=== PATIENT | female | born 1960 | race Caucasian/White ===

== ENCOUNTER → 2020-07-13 | Day surgery (SDC) | payer MEDICARE, MEDICAID ==
[2020-07-08 14:04] LABS: BASOPHILS # (AUTO) 0.1 X10'3 (0-0.2); BASOPHILS % (AUTO) 0.6 % (0-1); EOSINOPHILS # (AUTO) 0.1 X10'3 (0-0.9); EOSINOPHILS % (AUTO) 1.2 % (0-6); LYMPHOCYTES # (AUTO) 2.7 X10'3 (1.1-4.8); LYMPHOCYTES % (AUTO) 30.9 % (21-51); MEAN CORPUSCULAR HGB CONC 33.1 g/dL (33.0-36.5); MEAN CORPUSCULAR VOLUME 96.6 FL (78-98); MEAN PLATELET VOLUME 8.7 FL (7.4-10.4); MONOCYTES # (AUTO) 0.8 X10'3 (0-0.9); MONOCYTES % (AUTO) 9.2 % (2-12); NEUTROPHILS # (AUTO) 5.1 X10'3 (1.8-7.7); NEUTROPHILS % (AUTO) 58.1 % (42-75); PRE OP HEMATOCRIT 40.6 % (35.0-45.0); PRE OP HEMOGLOBIN 13.4 g/dL (12.0-16.0); PRE OP PLATELET COUNT 258 X10'3 (140-440); RED CELL DISTRIBUTION WIDTH 13.4 % (11.5-14.5)
[2020-07-08 14:22] LABS: PRE OP INR < 0.9 INR; PRE OP PARTIAL THROMB. TIME 26 SECONDS (22-32); PRE OP PROTIME 9.6 SECONDS (9.0-12.0)
[2020-07-08 14:24] LABS: ALBUMIN 3.6 G/DL (3.4-5.0); ALBUMIN/GLOBULIN RATIO 0.9 (1.1-1.5); ALKALINE PHOSPHATASE 110 IU/L (46-116); BLOOD UREA NITROGEN 13 MG/DL (7-18); BUN/CREATININE RATIO 11.1 (6.6-38.0); CHLORIDE 109 MMOL/L (99-107); CREATININE 1.17 MG/DL (0.40-0.90); PRE OP ALT 24 U/L (30-65); PRE OP ANION GAP 6 (8-16); PRE OP AST 19 U/L (10-37); PRE OP BILIRUB, TOTAL 0.1 MG/DL (0.0-1.0); PRE OP GLUCOSE 103 MG/DL (70-104); PRE OP POTASSIUM 3.7 MMOL/L (3.4-5.1); PRE OP SODIUM 141 MMOL/L (135-145); TOTAL CARBON DIOXIDE 26.4 MMOL/L (24-32); TOTAL PROTEIN 7.4 G/DL (6.4-8.2); eGFR 48 ML/MIN
[~2020-07-13] VITALS: Ht 153.7 cm; Wt 63.5 kg
[2020-07-13] VITALS (8 sets, daily range): BP systolic 146–168; BP diastolic 83–101
[~2020-07-13] MED LIST: BIOT1CAP3 PO; BUPIVAcaine 0.5% W/EPI /PF 30ml vial IJ ONE; CYAN500T46 PO; FLUV25TA3 PO; LIDOcaine 1% W/epiNEPHrine 1:100,000 20ml vial ONE; LIDOcaine 2% (20mg/ml) 5ml vial ONE; LORA2TAB96 PO; MIDAZolam 1mg/ml 10ml vial IV PRN; MIDAZolam 5mg/ml 2ml vial IV PRN; MIRT15TA PO; PALI1.5T PO; TRAZ-251 PO; VALA500T PO; cefTAZidime 1gm inj ONE; cocaine 4% topical solution 4ml bottle ONE; dexamethasone sod phosphate 4mg/ml inj. ONE; ePHEDrine 50MG/ML INJ. ONE; famotidine 20mg tablet PO ONE; fentaNYL/PF 50MCG/1 ML 2ML syringe IV PRN; fentaNYL/PF 50MCG/1 ML 2ML syringe ONE; hydrALAZINE 20mg/ml inj. IV PRN; labetalol 20mg/4ml (5mg/ml) syringe IV PRN; methylPREDNISolone acetate 80mg/ml inj**IM only ONE; morphine 2 MG/ML inj. syringe IV PRN; morphine 4 MG/ML inj SYRINge IV PRN; mupirocin 2% ointment 22GM ONE; ondansetron/PF 4mg/2ml inj IV PRN; ondansetron/PF 4mg/2ml inj ONE; oxymetazoline 15 ML nasal spray NS ONE; oxymetazoline 15 ML nasal spray NS PRN; propofol inj 20 ML IV ONE; ringers solution, lacted 1,000 ML IV SCH; salt irrigation nasal spray 45 ML SPRAY NS PRN; sevoflurane 250ml liquid IH ONE
--- NOTE | 2020-07-13 14:38 | NUR ---
Received from OR via [facility] , accompanied by Anesthesiologist DR APPIAH and report given by Anesthesiolgist. PT AROUSABLE. COTTONOIDS TO BILAT NARES AT THIS TIME.
--- NOTE | 2020-07-13 15:07 | NUR ---
LABETOLOL 5MG ADMIN ORDERED FOR BP, MEDICATION WOULD NOT SCAN. [employer] SAYS UNKNOWN WHEN I SCANNED MEDICATION.
--- NOTE | 2020-07-13 15:08 | NUR ---
SURJIT DC'D PER MD ORDERS. ANNY NASAL GTT DRSG IN PLACE.
--- NOTE | 2020-07-13 15:58 | NUR ---
PT WAS DISCHARGED TO HOME PER MD ORDERS. PT BP REMAINED A LITTLE ELEVATED AFTER LABETOLOL, BUT PT NOT BLEEDING, DR GÓMEZ AWARE AND OK TO DC TO HOME. PT AND SPOUSE BOTH INSTRUCTED ON ALL POST OP INSTRUCTIONS AND BOTH STATE UNDERSTANDING. AFIRIN AND OINTMENT TO BILAT NARES PER MD ORDERS. PT WAS DC'D SAFELY VIA W/C WITH ALL BELONGINGS.
== END | disposition home or self-care (01) ==
LOC: PAS 09:03
PROVIDERS: ATTEND Otolaryngology
DX: J34.2 Deviated nasal septum (principal); J34.3 Hypertrophy of nasal turbinates; J32.8 Other chronic sinusitis; J34.89 Other specified disorders of nose and nasal sinuses; F41.9 Anxiety disorder, unspecified; F32.9 Major depressive disorder, single episode, unspecified; F20.9 Schizophrenia, unspecified; F43.10 Post-traumatic stress disorder, unspecified; Z90.710 Acquired absence of both cervix and uterus; Z98.890 Other specified postprocedural states; Z88.2 Allergy status to sulfonamides; Z88.1 Allergy status to other antibiotic agents; Z91.09 Other allergy status, other than to drugs and biological substances; Z79.899 Other long term (current) drug therapy; Z79.01 Long term (current) use of anticoagulants; Z20.828 Contact with and (suspected) exposure to other viral communicable diseases
CPT/HCPCS: 30140; 30520; 31254; 31267; 36415; 61782; 70486; 80053; 82948; 85025; 85576; 85610; 85730; 87635; 93005; A6402; C9250; C9803; J0713; J1040; J1100; J2001; J2250; J2405; J2704; J3010; J7040; J7120; A4618; A7000; J3490

== ENCOUNTER 2020-07-21 13:58 | Outpatient (CLI) | payer MEDICARE, MEDICAID ==
[~2020-07-21 13:58] MED LIST changes: -BUPIVAcaine 0.5% W/EPI /PF 30ml vial IJ ONE; -LIDOcaine 1% W/epiNEPHrine 1:100,000 20ml vial ONE; -LIDOcaine 2% (20mg/ml) 5ml vial ONE; -MIDAZolam 1mg/ml 10ml vial IV PRN; -MIDAZolam 5mg/ml 2ml vial IV PRN; -cefTAZidime 1gm inj ONE; -cocaine 4% topical solution 4ml bottle ONE; -dexamethasone sod phosphate 4mg/ml inj. ONE; -ePHEDrine 50MG/ML INJ. ONE; -famotidine 20mg tablet PO ONE; -fentaNYL/PF 50MCG/1 ML 2ML syringe IV PRN; -fentaNYL/PF 50MCG/1 ML 2ML syringe ONE; -hydrALAZINE 20mg/ml inj. IV PRN; -labetalol 20mg/4ml (5mg/ml) syringe IV PRN; -methylPREDNISolone acetate 80mg/ml inj**IM only ONE; -morphine 2 MG/ML inj. syringe IV PRN; -morphine 4 MG/ML inj SYRINge IV PRN; -mupirocin 2% ointment 22GM ONE; -ondansetron/PF 4mg/2ml inj IV PRN; -ondansetron/PF 4mg/2ml inj ONE; -oxymetazoline 15 ML nasal spray NS ONE; -oxymetazoline 15 ML nasal spray NS PRN; -propofol inj 20 ML IV ONE; -ringers solution, lacted 1,000 ML IV SCH; -salt irrigation nasal spray 45 ML SPRAY NS PRN; -sevoflurane 250ml liquid IH ONE
== END 2020-07-21 23:59 | disposition home or self-care (01) ==
LOC: RT 13:58
PROVIDERS: ATTEND Nurse Practitioner
DX: J45.909 Unspecified asthma, uncomplicated (principal); R94.2 Abnormal results of pulmonary function studies
CPT/HCPCS: 94010

== ENCOUNTER 2020-08-04 15:33 | Emergency (ER) | payer MEDICARE, MEDICAID ==
[~2020-08-04] VITALS: Ht 154.9 cm; Wt 60.9 kg
[2020-08-04 16:33] LABS: HEMATOCRIT 37.8 % (35.0-45.0); MEAN CORPUSCULAR HEMOGLOBIN 32.8 PG (27.0-31.0)
[2020-08-04 16:35] LABS: BASOPHILS # (AUTO) 0.1 X10'3 (0-0.2); BASOPHILS % (AUTO) 1.4 % (0-1); EOSINOPHILS # (AUTO) 0.1 X10'3 (0-0.9); EOSINOPHILS % (AUTO) 1.4 % (0-6); HEMOGLOBIN 12.8 g/dl (12.0-16.0); LYMPHOCYTES # (AUTO) 2.8 X10'3 (1.1-4.8); LYMPHOCYTES % (AUTO) 30.6 % (21-51); MEAN CORPUSCULAR HGB CONC 33.9 g/dL (33.0-36.5); MEAN CORPUSCULAR VOLUME 96.6 FL (78-98); MEAN PLATELET VOLUME 8.9 FL (7.4-10.4); MONOCYTES # (AUTO) 0.8 X10'3 (0-0.9); MONOCYTES % (AUTO) 9.1 % (2-12); NEUTROPHILS # (AUTO) 5.3 X10'3 (1.8-7.7); NEUTROPHILS % (AUTO) 57.5 % (42-75); PLATELET COUNT 314 X10'3 (140-440); RED BLOOD COUNT 3.91 X10'6 (4.20-5.60); RED CELL DISTRIBUTION WIDTH 13.5 % (11.5-14.5); WHITE BLOOD COUNT 9.3 X10'3 (4.5-11.0)
[2020-08-04 16:47] LABS: ALANINE AMINOTRANSFERASE 22 U/L (12-78); ALBUMIN 3.5 G/DL (3.4-5.0); ALBUMIN/GLOBULIN RATIO 0.9 (1.1-1.5); ALKALINE PHOSPHATASE 134 IU/L (46-116); ANION GAP 4 (8-16); ASPARTATE AMINO TRANSFERASE 16 U/L (10-37); BILIRUBIN,TOTAL 0.1 MG/DL (0.1-1.0); BLOOD UREA NITROGEN 17 MG/DL (7-18); BUN/CREATININE RATIO 16.7 (6.6-38.0); CALCIUM 9.7 MG/DL (8.5-10.1); CHLORIDE 106 MMOL/L (99-107); CREATININE 1.02 MG/DL (0.40-0.90); GLUCOSE 97 MG/DL (70-104); POTASSIUM 3.9 MMOL/L (3.5-5.1); SODIUM 139 MMOL/L (135-145); TOTAL PROTEIN 7.3 G/DL (6.4-8.2); eGFR 56 ML/MIN
[2020-08-04 17:15] LABS: ETHANOL < 0.010 GM/DL (0.0-0.010)
--- NOTE | 2020-08-04 18:19 | NUR ---
PT HAS GIVEN PERMISSION FOR STAFF TO GIVE STATUS UPDATES TO HER PITA BYRD WHEN HE CALLS. CONTACT INFO: ROCHELLE MCKINLEY; H) [phone] C) [phone]
[2020-08-04] MEDS: fluvoxamine 25 MG tablet PO SCH (20:48)
[2020-08-04] MEDS ORDERED: LORazepam 1 MG tablet PO SCH (21:00)
[2020-08-04] MEDS ORDERED: traZODone 50mg tablet PO SCH (21:00)
[2020-08-04] MEDS ORDERED: mirtazapine 15mg tablet PO SCH (21:00)
[2020-08-04] MEDS ORDERED: paliperidone 1.5mg ER tablet PO SCH (21:00)
[2020-08-04] MEDS ORDERED: valacyclovir 500mg tablet PO SCH (21:00)
--- NOTE | 2020-08-04 21:27 | NUR ---
PT RESTING IN BED. NO S/S OF DISTRESS OR PAIN. WILL CONTINUE TO MONITOR.
[2020-08-05 01:17] LABS: URINE HCG NEGATIVE (NEG)
[2020-08-05 01:23] LABS: URINE AMPHETAMINE SCREEN NEGATIVE (Neg); URINE BARBITUATE SCREEN NEGATIVE (Neg); URINE BENZODIAZEPINES SCREEN NEGATIVE (Neg); URINE CANNABINOID SCREEN POSITIVE (Neg); URINE COCAINE SCREEN NEGATIVE (Neg); URINE METHADONE SCREEN NEGATIVE (Neg); URINE OPIATE SCREEN NEGATIVE (Neg); URINE PHENCYCLIDINE SCREEN NEGATIVE (Neg)
[2020-08-05 01:30] LABS: CLARITY,URINE CLEAR (Clear); COLOR,URINE YELLOW (Yellow); GLUCOSE, URINE NEGATIVE (Neg); KETONES,URINE NEGATIVE (Neg); LEUKOCYTE ESTERASE ,URINE NEGATIVE (Neg); NITRITES, URINE NEGATIVE (Neg); OCCULT BLOOD,URINE NEGATIVE (Neg); PROTEIN,URINE NEGATIVE (Neg); UROBILINOGEN,URINE 0.2 E.U/dL (0.2-1.0)
[2020-08-05 01:31] LABS: UA COLLECTION TYPE CLN CATCH MIDSTREAM
[2020-08-05] MEDS ORDERED: cyanocobalamin 500mcg tablet PO SCH (08:00)
[2020-08-05] MEDS ORDERED: non-formulary drug (Biotin 1 CAP) PO SCH (08:00)
[2020-08-05] MEDS: fluvoxamine 25 MG tablet PO SCH (08:39)
--- NOTE | 2020-08-05 12:42 | NUR ---
LUNCH RELIEF FOR PRIMARY RN: PT RESTING WITH EYES CLOSED RR EQUAL AND UNLABORED
--- NOTE | 2020-08-05 15:54 | NUR ---
sitting up in bed resting
--- NOTE | 2020-08-05 16:41 | NUR ---
resting in bed
--- NOTE | 2020-08-05 17:26 | NUR ---
hook up driver time for Rob Murray at 1815.
--- NOTE | 2020-08-05 17:26 | NUR ---
resting in bed
--- NOTE | 2020-08-05 18:00 | NUR ---
resting in bed
[2020-08-05 18:09] VITALS: BP 108/81
--- NOTE | 2020-08-05 18:56 | NUR ---
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 PT'S BELONGINGS AND MEDS ARE WITH FACILITY REP. PT LEAVING IN STABLE CONDITION.
== END 2020-08-05 18:59 ==
LOC: ER 15:33
DX: R45.851 Suicidal ideations (principal); F32.9 Major depressive disorder, single episode, unspecified; F25.9 Schizoaffective disorder, unspecified; Z88.2 Allergy status to sulfonamides; Z79.2 Long term (current) use of antibiotics; Z88.8 Allergy status to other drugs, medicaments and biological substances; Z79.899 Other long term (current) drug therapy
CPT/HCPCS: 36415; 80053; 80305; 80320; 81003; 81025; 84443; 85025; 99285

== ENCOUNTER 2022-02-12 10:52 | Emergency (ER) | payer MEDICARE, MEDICAID ==
[~2022-02-12] VITALS: Ht 157.5 cm; Wt 84.0 kg
[~2022-02-12 10:52] MED LIST changes: +FLUV25TA14 PO; -FLUV25TA3 PO; +MIRT-116 PO; -MIRT15TA PO
[2022-02-12] MEDS ORDERED: normal saline 1000ml 1,000 ML IV ONE (11:35)
[2022-02-12] MEDS ORDERED: ondansetron/PF 4mg/2ml inj IV ONE (11:35)
[2022-02-12 12:22] LABS: BASOPHILS % (AUTO) 0.3 % (0-1); EOSINOPHILS % (AUTO) 0.1 % (0-6); HEMOGLOBIN 12.5 g/dl (12.0-16.0); LYMPHOCYTES # (AUTO) 0.9 X10'3 (1.1-4.8); LYMPHOCYTES % (AUTO) 11.4 % (21-51); MEAN CORPUSCULAR HEMOGLOBIN 31.9 PG (27.0-31.0); MEAN CORPUSCULAR HGB CONC 33.8 g/dL (33.0-36.5); MEAN CORPUSCULAR VOLUME 94.5 FL (78-98); MEAN PLATELET VOLUME 8.7 FL (7.4-10.4); MONOCYTES # (AUTO) 0.6 X10'3 (0-0.9); MONOCYTES % (AUTO) 7.6 % (2-12); NEUTROPHILS # (AUTO) 6.1 X10'3 (1.8-7.7); NEUTROPHILS % (AUTO) 80.6 % (42-75); PLATELET COUNT 272 X10'3 (140-440); RED BLOOD COUNT 3.91 X10'6 (4.20-5.60); RED CELL DISTRIBUTION WIDTH 15.1 % (11.5-14.5); WHITE BLOOD COUNT 7.6 X10'3 (4.5-11.0)
[2022-02-12 12:37] LABS: ALANINE AMINOTRANSFERASE 94 U/L (12-78); ALBUMIN 3.4 G/DL (3.4-5.0); ALBUMIN/GLOBULIN RATIO 0.8 (1.1-1.5); ALKALINE PHOSPHATASE 150 IU/L (46-116); ANION GAP 10 (8-16); ASPARTATE AMINO TRANSFERASE 125 U/L (10-37); BILIRUBIN,TOTAL 0.3 MG/DL (0.1-1.0); BLOOD UREA NITROGEN 7 MG/DL (7-18); BUN/CREATININE RATIO 7.3 (6.6-38.0); CALCIUM 9.3 MG/DL (8.5-10.1); CHLORIDE 104 MMOL/L (99-107); CREATININE 0.96 MG/DL (0.40-0.90); GLUCOSE 140 MG/DL (70-104); LIPASE 62 U/L (73-393); POTASSIUM 3.4 MMOL/L (3.5-5.1); SODIUM 138 MMOL/L (135-145); TOTAL CARBON DIOXIDE 24.1 MMOL/L (24-32); TOTAL PROTEIN 7.7 G/DL (6.4-8.2); eGFR 59 ML/MIN
[2022-02-12] MEDS ORDERED: normal saline 1000ML IV soln IV ONE (12:40)
[2022-02-12] MEDS ORDERED: morphine 2 MG/ML inj. syringe IV ONE (13:20)
[2022-02-12 13:38] LABS: CLARITY,URINE SLIGHTLY CLOUDY (Clear); COLOR,URINE YELLOW (Yellow); GLUCOSE, URINE NEGATIVE (Neg); KETONES,URINE NEGATIVE (Neg); LEUKOCYTE ESTERASE ,URINE NEGATIVE (Neg); NITRITES, URINE NEGATIVE (Neg); OCCULT BLOOD,URINE SMALL (Neg); PROTEIN,URINE NEGATIVE (Neg); UROBILINOGEN,URINE 0.2 E.U/dL (0.2-1.0)
[2022-02-12 13:39] LABS: UA COLLECTION TYPE CLN CATCH MIDSTREAM
[2022-02-12 13:46] LABS: MUCUS STRANDS FEW /LPF (Neg); SQUAMOUS EPITHELIAL CELL,UR MODERATE /LPF (FEW)
[2022-02-12 13:47] LABS: BACTERIA,URINE FEW /HPF (Neg)
[2022-02-12 13:48] LABS: WBC,URINE 0-4 /HPF (0-4)
[2022-02-12] MEDS ORDERED: ondansetron 4mg rapidly disintigrating tab PO ONE (14:45)
[2022-02-12] MEDS ORDERED: ONDA4TAB12 PO (14:48)
[2022-02-12] MEDS ORDERED: potassium chloride 10mEq ER tablet PO SCH (14:50)
[2022-02-12] MEDS ORDERED: diphenhydrAMINE 50 mg/ml inj IV ONE (15:20)
[2022-02-12] MEDS ORDERED: proCHLORperazine 10 MG/2 ml inj IV ONE (15:20)
--- NOTE | 2022-02-12 15:30 | NUR ---
Attempted to discharge pt, gave potassium per order. Pt began vomiting with a sip of 7 Up. Provider notified.
--- NOTE | 2022-02-12 15:48 | NUR ---
Pt taking sips of water with no nausea or vomiting.
[2022-02-12 15:57] VITALS: BP 148/103
== END 2022-02-12 16:00 | disposition home or self-care (01) ==
LOC: ER 10:52
DX: K52.9 Noninfective gastroenteritis and colitis, unspecified (principal); Z20.822 Contact with and (suspected) exposure to COVID-19; Z88.2 Allergy status to sulfonamides; Z88.1 Allergy status to other antibiotic agents; Z91.048 Other nonmedicinal substance allergy status; Z79.899 Other long term (current) drug therapy; Z79.2 Long term (current) use of antibiotics
CPT/HCPCS: 36415; 76700; 80053; 81001; 83605; 83690; 84145; 85025; 87040; 87635; 96361; 96374; 96375; 99285; C9803; J0780; J1200; J2270; J2405; J7030

== ENCOUNTER → 2022-06-07 | Emergency (ER) | payer MEDICARE, MEDICAID ==
[~2022-06-07] VITALS: Ht 157.5 cm; Wt 75.0 kg
[~2022-06-07] MED LIST changes: +GABA300C PO; +ONDA4TAB12 PO
[2022-06-07 10:13] VITALS: BP 142/109
== END | disposition home or self-care (01) ==
LOC: ER 09:51
DX: G62.9 Polyneuropathy, unspecified (principal); F31.9 Bipolar disorder, unspecified; F20.9 Schizophrenia, unspecified; Z88.2 Allergy status to sulfonamides; Z79.899 Other long term (current) drug therapy; Z79.2 Long term (current) use of antibiotics
CPT/HCPCS: 99283

== ENCOUNTER 2023-05-18 16:04 | Emergency (ER) | payer MEDICARE, MEDICAID ==
[~2023-05-18] VITALS: Ht 157.5 cm; Wt 60.0 kg
[~2023-05-18 16:04] MED LIST changes: +ATOR10TA70 PO; -BIOT1CAP3 PO; -CYAN500T46 PO; +ESCI-8 PO; -FLUV25TA14 PO; -GABA300C PO; +LURA80TA2 PO; -MIRT-116 PO; +OMEP40CA21 PO; -ONDA4TAB12 PO; -PALI1.5T PO
[2023-05-18 16:08] VITALS: BP 147/87
[2023-05-18] MEDS ORDERED: TRIA15CR61 TP (17:25)
== END 2023-05-18 17:47 | disposition home or self-care (01) ==
LOC: ER 16:04
DX: L23.7 Allergic contact dermatitis due to plants, except food (principal); F31.9 Bipolar disorder, unspecified; F20.9 Schizophrenia, unspecified; Z88.2 Allergy status to sulfonamides; Z79.899 Other long term (current) drug therapy; Z88.1 Allergy status to other antibiotic agents; Z79.1 Long term (current) use of non-steroidal anti-inflammatories (NSAID); Z79.2 Long term (current) use of antibiotics
CPT/HCPCS: 99283

== ENCOUNTER 2025-01-11 11:45 | Emergency (ER) | payer MEDICARE, MEDICAID ==
[~2025-01-11] VITALS: Ht 157.5 cm; Wt 67.8 kg
[2025-01-11 12:00] VITALS: BP 155/82; PULSE 76; RESP 16; TEMP 96.4; O2SAT 97
== END 2025-01-11 14:30 | disposition left against medical advice (07) ==
LOC: ER 11:45
DX: S05.31XA Ocular laceration without prolapse or loss of intraocular tissue, right eye, initial encounter (principal); X58.XXXA Exposure to other specified factors, initial encounter; Y93.89 Activity, other specified; Y92.89 Other specified places as the place of occurrence of the external cause; Y99.8 Other external cause status; Z53.21 Procedure and treatment not carried out due to patient leaving prior to being seen by health care provider
CPT/HCPCS: 70450; 72125

== ENCOUNTER 2025-01-11 17:27 | Emergency (ER) | payer MEDICARE, MEDICAID ==
[~2025-01-11] VITALS: Ht 157.5 cm; Wt 61.9 kg
[2025-01-11 17:30] VITALS: BP 153/97; PULSE 76; RESP 15; O2SAT 96
== END 2025-01-11 19:26 | disposition left against medical advice (07) ==
LOC: ER 17:28
DX: S05.31XA Ocular laceration without prolapse or loss of intraocular tissue, right eye, initial encounter (principal); Z88.2 Allergy status to sulfonamides; W19.XXXA Unspecified fall, initial encounter; Y93.89 Activity, other specified; Y92.89 Other specified places as the place of occurrence of the external cause; Y99.8 Other external cause status; Z53.21 Procedure and treatment not carried out due to patient leaving prior to being seen by health care provider

== ENCOUNTER 2025-08-25 14:43 | Emergency (ER) | payer MEDICARE, MEDICAID ==
[~2025-08-25] VITALS: Ht 157.5 cm; Wt 70.8 kg
--- NOTE | 2025-08-25 17:05 | Physician Documentation ---
History of Present Illness ~ Chief Complaint: Cold, cough & congestion Stated Complaint: FLU SYMPTOMS Time Seen by MD: 17:56 Primary Medical Doctor: Vikki Mead HPI Patient is seen today with complaints of cough cold congestion and fever and c hills that started couple of days ago. Patient does admit to sick contacts and patient is afraid she might have COVID-19. She denies any prior testing for COVID recently. She denies any chest pain or shortness of breath aside from cough. Endorses diarrhea for which she is taking immodium with good affect but having nausea as well. with similar symptoms Medication Reconciliation Allergies: Coded Allergies: Sulfa (Sulfonamide Antibiotics) (Unverified Allergy, Unknown, 08/25/25) adhesive tape (Unverified Allergy, Unknown, 08/25/25) erythromycin base (Unverified Allergy, Unknown, 08/25/25) Scheduled Atorvastatin Calcium (Atorvastatin Calcium), 1 TAB PO DAILY, (Reported) Escitalopram Oxalate (Escitalopram Oxalate), 2 TAB PO QAM, (Reported) Lorazepam (Ativan), 1 TAB PO HS, (Reported) Lurasidone HCl (Latuda), 1 TAB PO HS, (Reported) Omeprazole (Prilosec), 1 CAP PO DAILY, (Reported) Ondansetron 8mg ODT (Ondansetron Odt), 1 TAB PO Q6H Valacyclovir Hcl (Valtrex), 1 TAB PO HS, (Reported) Scheduled PRN Trazodone HCl (Trazodone HCl), 2 TAB PO HS PRN for sleep, (Reported) Past Medical History Past Medical History: Anxiety, Bipolar, Depression, Schizophrenia Past Surgical History: noncontributory Alcohol Use: None Drug Use: none Lives In: Home Review of Systems ROS All review of systems negative except as per HPI Constitutional: Denies: chills, fever, weakness Eyes: Denies: pain, blurred vision ENT: Denies: ear pain, nose pain, throat pain, mouth pain Respiratory: Denies: cough, shortness of breath Cardiovascular: Denies: chest pain, palpitations Gastrointestinal: Denies: abdominal pain, nausea, vomiting Genitourinary: Denies: burning, dysuria Female Genitalia: Denies: vaginal discharge, pelvic pain Neurological: Denies: headache, dizziness Musculoskeletal: Denies: pain, swelling Integumentary: Denies: rash, lesions Allergic/Immunologic: Denies: hives, itching Hematologic/Lymphatic: Denies: no symptoms reported Psychiatric: Denies: depression, anxiety Physical Exam Vital Signs: Temperature: 97.6, Source: Temporal, Heart Rate: 102, Respiratory Rate: 20, BP: 172/109, Pulse Oximetry: 98, Weight: 70.800 Oxygen Flow Rate: 0 Physical Exam General: Patient is awake, alert, oriented x4 in no acute distress Head: Normocephalic and atraumatic. Eyes: Conjunctival normal. EOMI. PERRL. ENT: Mucous membranes moist. Neck: Supple, trachea is midline. Chest: Clear to auscultation bilaterally without rales, rhonchi, or wheezes. There is no accessory muscle use or retractions. Cardiac: RRR without murmurs, gallops, or rubs. Abd: Soft, nondistended, nontender, with normoactive bowel sounds. No guarding, rebound, or rigidity. Progress Results/Orders Results/Orders Completed Orders - ONESIMO GRAVES MD Ondansetron Disint. Tablet (Zofran Odt T (08/25/25 18:20) Medications Received in ER Medications (Trade) Dose Ordered Sig/Constantino Route PRN Reason Start Time Stop Time Status Last Admin Dose Admin (Zofran ODT tablet) 8 mg ONCE ONCE PO 08/25/25 18:20 08/25/25 18:21 DC 08/25/25 19:00 8 MG Vital Signs 08/25/25 08/25/25 08/25/25 08/25/25 14:50 17:34 17:35 19:02 Temp 97.6 97.6 97.6 Pulse 102 92 89 Resp 20 18 20 18 B/P (MAP) 172/109 136/93 (107) 136/99 Pulse Ox 98 98 99 O2 Flow Rate 0 0 Laboratory Tests Test 08/25/25 17:30 Influenza Type A Antigen Negative Influenza Type B Antigen Negative SARS-CoV-2 Antigen (Rapid) Negative Medical Decision Making Additional information obtaine: other Findings Patient presents to the emergency room with a constellation of symptoms that has per HPI. Differentials include but are not limited to dehydration, electrolyte disturbances, sepsis therefore emergent labs ordered which were reassuring. Given patient's variety of symptoms I suspect viral etiology. Symptomatic treatment only. I do not feel she requires a chest x-ray given reassuring physical exam and stable vitals. I do not feel any CT is necessary. Differential Dx:Considerations: Include: Allergic rhinitis, Influenza, Otitis media, Peritonsillar abscess, Pharyngitis-Diphtheria, Pharyngitis-Streptoccal, Pharyngitis-Viral, Pneumonia, Pnuemonitis, Sinusitis, URI, Other Departure Disposition: HOME / SELF CARE / HOMELESS Impression: Primary Impression: Gastroenteritis Condition: Stable Discharge Instructions: Viral Gastroenteritis, Adult Referrals: NO PRIMARY CARE PROVIDER (PCP) Prescriptions Ondansetron 8mg ODT (Ondansetron Odt) 8 Mg Tab.rapdis 1 TAB PO Q6H for nausea/vomiting for 3 Days, #12 TAB 0 Refills Prov: ONESIMO GRAVES MD 08/25/25 Signature Scribe Signature: No scribe Attestation: The note accurately reflects work and decisions made by me.Onesimo Graves MD 08/25/25 19:22 JANNETH ROGERS Aug 25, 2025 17:05 ONESIMO GRAVES MD Aug 25, 2025 18:21
[2025-08-25 18:08] LABS: INFLUENZA TYPE A ANTIGEN RAPID NEGATIVE (Negative); INFLUENZA TYPE B ANTIGEN RAPID NEGATIVE (Negative)
[2025-08-25] MEDS ORDERED: ONDA-245 PO (18:21)
[2025-08-25] MEDS: ondansetron 4mg rapidly disintigrating tab PO ONE (19:00)
[2025-08-25 19:02] VITALS: BP 136/99; PULSE 89; RESP 18; TEMP 97.6; O2SAT 99
== END 2025-08-25 19:04 | disposition home or self-care (01) ==
LOC: ER 14:43
DX: K52.9 Noninfective gastroenteritis and colitis, unspecified (principal); F20.9 Schizophrenia, unspecified; F31.9 Bipolar disorder, unspecified; F41.9 Anxiety disorder, unspecified; Z20.822 Contact with and (suspected) exposure to COVID-19; Z88.1 Allergy status to other antibiotic agents; Z88.2 Allergy status to sulfonamides
CPT/HCPCS: 36415; 87804; 87811; 99283